=== PATIENT | male | born 1985 | race Caucasian/White ===

== ENCOUNTER 2019-01-18 12:18 | Emergency (ER) | payer BC ==
[2019-01-18 12:32] VITALS: BP 134/78
[2019-01-18 12:51] LABS: Influenza A Molecular NEGATIVE (Negative); Influenza B Molecular NEGATIVE (Negative)
--- NOTE | 2019-01-18 13:12 | UC ---
General HPI - HPI Summary HPI Summary: Mr. Castillo report that about 1999 last evening, he began to notice that his left arm was a little numb and tingly. It worsened until it was very numb and felt weak. He went to bed and it was fine in the AM. He, however, had mild, diffuse abdominal pain, nausea and a mild, diffuse PALMA. - History of Current Complaint Chief Complaint: UCRespiratory Stated Complaint: FLU LIKE SYMP Time Seen by Provider: 01/18/19 12:34 Pain Intensity: 3 - Allergy/Home Medications Allergies/Adverse Reactions: Allergies Allergy/AdvReac Type Severity Reaction Status Date / Time cefaclor [From Ceclor] Allergy Anaphylatic Verified 01/18/19 12:32 Shock doxycycline Allergy Anaphylatic Verified 01/18/19 12:32 Shock PMH/Surg Hx/FS Hx/Imm Hx Previously Healthy: Yes Cardiovascular History: Other - He has been taking lipitor for elevated chholesterol for at least 7 years and says his lipids have been elevated since he was a boy. - Surgical History Surgical History: Yes Surgery Procedure, Year, and Place: adnoid ectomy - Social History Alcohol Use: Daily Substance Use Type: None Smoking Status (MU): Never Smoked Tobacco Review of Systems All Other Systems Reviewed And Are Negative: Yes Physical Exam - Summary Physical Exam Summary: He is non-toxic in appearance with stable vitals aside from a very slightly elevated blood pressure. Triage Information Reviewed: Yes Appearance: Well-Appearing Vital Signs: Initial Vital Signs Temp 98.9 F 01/18/19 12:27 Pulse 94 01/18/19 12:27 Resp 18 01/18/19 12:27 BP 134/78 01/18/19 12:27 Pulse Ox 98 01/18/19 12:27 Vital Signs Reviewed: Yes Eye Exam: Normal ENT Exam: Normal Neck exam: Normal Respiratory Exam: Normal Cardiovascular Exam: Normal Abdominal Exam: Normal Musculoskeletal Exam: Normal Neurological Exam: Normal - NIH scal 0 Psychological Exam: Normal Course/Dx - Course Course Of Treatment: I do not know what is causing his symptoms but think that he needs more W/U than I can provide in this setting. I recommended that his drive him to the ED now and she agreed. He is stable at discharge. - Diagnoses Provider Diagnosis: Arm paresthesia, left Discharge - Sign-Out/Discharge Documenting (check all that apply): Patient Departure All imaging exams completed and their final reports reviewed: No Studies - Discharge Plan Condition: Stable Disposition: HOME-RECOMMEND TO ED Patient Education Materials: Paresthesia (ED) Referrals: Blake Quiros MD [Primary Care Provider] - Additional Instructions: Please go to the ED now to get this figured out. - Billing Disposition and Condition Condition: STABLE Disposition: Home-Recommend to ED
== END 2019-01-18 12:59 | disposition home health service (06) ==
LOC: UCEAST 12:18
DX: R20.2 Paresthesia of skin (principal); E78.00 Pure hypercholesterolemia, unspecified; Z88.3 Allergy status to other anti-infective agents; Z79.899 Other long term (current) drug therapy
CPT/HCPCS: 99212; G0463

== ENCOUNTER 2019-01-18 13:18 | Emergency (ER) | payer BC ==
--- NOTE | 2019-01-18 13:36 | ED ---
Complex/Multi-Sys Presentation - HPI Summary HPI Summary: This pt is a 33 y/o male presenting to [facility] referred by [facility] c/o body aches, fatigue, nausea, abd pain today. Pt reports last night around 20:00 his left arm began to feel numb while [place] the [place] He notes he was sitting normally and was able to move his left arm. Throughout the night his left arm numbness worsened, described as left arm feeling achy and dull. Denies chest pain yesterday. He then went to sleep but notes he had a hard time falling asleep. Pt slept for 5 hours and woke up early this morning. Upon waking up this morning his left arm numbness had resolved. He reports feeling this morning body aches, fatigue, nausea, abd pain, headache. He has congestion from seasonal allergies. Denies sore throat, cough, upper respiratory infection symptoms, runny nose, fever, neck pain. - History Of Current Complaint Chief Complaint: EDFluSymptoms Time Seen by Provider: 01/18/19 13:24 Hx Obtained From: Patient Onset/Duration: Lasting Hours, Still Present Timing: Hours Severity Currently: Moderate Aggravating Factor(s): nothing Alleviating Factor(s): nothing Associated Signs And Symptoms: Positive: Nausea, Abdominal Pain, Other - POS: headache, body aches, fatigue, congestion. NEG: sore throat, runny nose, neck pain. Negative: Cough, Chest Pain, Fever - Allergies/Home Medications Allergies/Adverse Reactions: Allergies Allergy/AdvReac Type Severity Reaction Status Date / Time cefaclor [From [facility]] Allergy Anaphylatic Verified 01/18/19 13:22 Shock doxycycline Allergy Anaphylatic Verified 01/18/19 13:22 Shock PMH/Surg Hx/FS Hx/Imm Hx Endocrine/Hematology History: Denies: Hx Diabetes Cardiovascular History: Reports: Hx Hypercholesterolemia Denies: Hx Hypertension - Surgical History Surgery Procedure, Year, and Place: adnoid ectomy Infectious Disease History: No Infectious Disease History: Denies: Traveled Outside the [place] in Last 30 Days - Family History Known Family History: Positive: Cardiac Disease - Social History Alcohol Use: Daily Substance Use Type: Reports: None Smoking Status (MU): Never Smoked Tobacco Review of Systems Positive: Fatigue. Negative: Fever ENT: Other - POS: nasal congestion Negative: Sore Throat Negative: Chest Pain Negative: Cough Positive: Abdominal Pain, Nausea Positive: Myalgia. Negative: Other - NEG: neck pain Positive: Headache All Other Systems Reviewed And Are Negative: Yes Physical Exam - Summary Physical Exam Summary: VITAL SIGNS: Reviewed. GENERAL: Patient is a well-developed and nourished male who is lying comfortable in the stretcher. Patient is not in any acute respiratory distress. HEAD AND FACE: No signs of trauma. No ecchymosis, hematomas or skull depressions. No sinus tenderness. EYES: PERRLA, EOMI x 2, No injected conjunctiva, no nystagmus. EARS: Hearing grossly intact. Ear canals and tympanic membranes are within normal limits. MOUTH: Oropharynx within normal limits. NECK: Supple, trachea is midline, no adenopathy, no JVD, no carotid bruit, no c- spine tenderness, neck with full ROM. CHEST: Symmetric, no tenderness at palpation LUNGS: Clear to auscultation bilaterally. No wheezing or crackles. CVS: Regular rate and rhythm, S1 and S2 present, no murmurs or gallops appreciated. ABDOMEN: Soft, non-tender. No signs of distention. No rebound no guarding, and no masses palpated. Bowel sounds are normal. EXTREMITIES: FROM in all major joints, no edema, no cyanosis or clubbing. NEURO: Alert and oriented x 3. No acute neurological deficits. Speech is normal and follows commands. SKIN: Dry and warm Triage Information Reviewed: Yes Vital Signs On Initial Exam: Initial Vitals Temp Pulse Resp BP Pulse Ox 99.1 F 106 16 121/100 99 01/18/19 13:19 01/18/19 13:19 01/18/19 13:19 01/18/19 13:19 01/18/19 13:19 Vital Signs Reviewed: Yes Diagnostics - Vital Signs Vital Signs Temp Pulse Resp BP Pulse Ox 01/18/19 13:19 99.1 F 106 16 121/100 99 - Laboratory Result Diagrams: 01/18/19 13:49 01/18/19 13:49 Lab Statement: Any lab studies that have been ordered have been reviewed, and results considered in the medical decision making process. - EKG 13:38 Cardiac Rate: NL - at 89 bpm EKG Rhythm: Sinus Rhythm Summary of EKG Findings: No ST elevations. Normal axis. Re-Evaluation - Re-Evaluation First Eval Re-Evaluation Time: 15:00 Comment: I reviewed all results with the pt. He will be discharged home with follow up from PCP. Complex Multi-Symp Course/Dx Assessment/Plan: This patient is a 34-year-old male who presents to the emergency department with a chief complaint of having pain in the left upper extremity yesterday which resolved. Today he is asymptomatic. He also reports that he has body aches but he doesnt have any open respiratory tract infection symptoms. EKG is a normal sinus rhythm without any ST elevations. Blood work without any significant abnormality except for a BUN 25, glucose 105, ALT of 67. Patient has no other complaints. I discussed all the findings and test results with the patient. Patient was instructed to return to the emergency room immediately if any of the symptoms return worsens. Plan of care was discussed with the patient and understands and agrees. All questions were answered at patient satisfaction. There were no further complaints or concerns. Lung exam before discharge: CTA B/L. Good air exchange. No wheezing or crackles heard. CVS: S1 and S2 present. No murmurs appreciated. Patient is alert and oriented x 3. Patient is hemodynamically stable. Patient will be discharged home with follow up from his PCP in the next 2-3 days. - Diagnoses Provider Diagnoses: Viral syndrome Discharge - Sign-Out/Discharge Documenting (check all that apply): Patient Departure - Discharge home Patient Received Moderate/Deep Sedation with Procedure: No - Discharge Plan Condition: Stable Disposition: HOME Patient Education Materials: Viral Syndrome (ED) Referrals: Blake Quiros MD [Primary Care Provider] - Additional Instructions: FOLLOW UP WITH YOUR PRIMARY CARE PROVIDER IN 2-3 DAYS. RETURN TO THE EMERGENCY DEPARTMENT FOR ANY WORSENING OR NEW SYMPTOMS. - Billing Disposition and Condition Condition: STABLE Disposition: Home - Attestation Statements Document Initiated by Melinda: Yes Documenting Scribe: Kim Panchal Provider For Whom Melidna is Documenting (Include Credential): Saul Locke MD Scribe Attestation: Kim Mejia scribed for Saul Locke MD on 01/18/19 at 1831. Scribe Documentation Reviewed: Yes Provider Attestation: The documentation as recorded by the Kim dugan accurately reflects the service I personally performed and the decisions made by me, aSul Locke MD Status of Scribe Document: Viewed
[2019-01-18 13:55] LABS: ABS Basophils 0 10^3/ul (0-0.2); ABS Eosinophils 0.1 10^3/ul (0-0.6); ABS Monocytes 0.5 10^3/ul (0-0.8); ABS Neutrophils 6.2 10^3/ul (1.5-7.7); ABS Nucleated RBC 0 10^3/ul; Hematocrit 41 % (36-46); Hemoglobin 13.8 g/dL (14.0-18.0); Mean Corpuscular HGB Conc 34 g/dL (31-36); Mean Corpuscular Hemoglobin 30 pg (27-31); Mean Corpuscular Volume 88 fL (80-94); Mean Platelet Volume 7.2 fL (7.4-10.4); Nucleated Red Blood Cells % 0; Platelet Count 278 10^3/uL (150-450); Red Blood Count 4.61 10^6 /uL (4.18-5.48); Red Cell Distribution Width 13 % (10.5-15); White Blood Count 7.8 10^3/uL (3.5-10.8)
[2019-01-18 14:08] LABS: Influenza A Molecular NEGATIVE (Negative); Influenza B Molecular NEGATIVE (Negative)
[2019-01-18 14:20] LABS: Albumin 4.4 g/dL (3.2-5.2); Albumin/Globulin Ratio 1.8 (1-3); BUN/Creatinine Ratio 22.5 (8-20); EGFR African American 92.9 (>60); EGFR Non-African American 76.8 (>60); Globulin 2.5 g/dL (2-4); Potassium 3.7 mmol/L (3.5-5.0); Total Bilirubin 0.8 mg/dL (0.2-1.0); Total Protein 6.9 g/dL (6.4-8.9)
[2019-01-18 15:32] VITALS: BP 0/0
== END 2019-01-18 15:31 | disposition home or self-care (01) ==
LOC: ED 13:18
DX: B34.9 Viral infection, unspecified (principal); R20.0 Anesthesia of skin; E78.00 Pure hypercholesterolemia, unspecified
CPT/HCPCS: 36415; 80053; 85025; 87651; 93005; 99283